=== PATIENT | male | born 1965 | race Hispanic/Latino ===

== ENCOUNTER 2021-02-24 01:04 | Emergency (ER) | payer OTHER, SELFPAY ==
--- OUTSIDE RECORDS SUMMARY | 2021-02-24 01:07 | XMS REPORT | Continuity of Care Document ---
:1965 Author Organization [facility] t Address [address] [place] [address] Care Team Providers Name Role Phone Unavailable Unavailable Unavailable Problems This patient has no known problems. Allergies, Adverse Reactions, Alerts This patient has no known allergies or adverse reactions. Medications This patient has no known medications. Procedures This patient has no known procedures. Results This patient has no known results.
[2021-02-24] MEDS ORDERED: MORPHINE 4 MG/ML SYR ONE ×2 (01:50→04:54)
[2021-02-24] MEDS ORDERED: ONDANSETRON 4 MG/2 ML VIAL ONE (01:51)
[2021-02-24 02:11] LABS: Absolute Lymphocytes (CBC) 1.1 K/uL (0.7-4.9); Basophils % 0.5 % (0-1.3); Hematocrit 46.4 % (39.6-49.0); Lymphocytes % 14.3 % (15.3-44.8); RBC Red Blood Cell Count 5.46 M/uL (4.33-5.43)
[2021-02-24 02:14] LABS: Protime INR 1.07
[2021-02-24] MEDS ORDERED: NA CHLORIDE 0.9% 1,000 ML ONE (02:16)
[2021-02-24 02:35] LABS: ALT/SGPT 36 U/L (12-78); AST/SGOT 13 U/L (15-37); Albumin 3.8 g/dL (3.4-5.0); Alkaline Phosphatase 92 U/L (45-117); BUN Blood Urea Nitrogen 15 mg/dL (7-18); Bicarbonate 26 mmol/L (21-32); Bilirubin Direct 0.2 mg/dL (0-0.2); Bilirubin Total 0.8 mg/dL (0.2-1.0); Glucose Level 251 mg/dL (74-106); Lipase 125 U/L (73-393); Magnesium 2.2 mg/dL (1.8-2.4); NT PRO-BNP 48 pg/mL (<125); Potassium 4.2 mmol/L (3.5-5.1); Protein, Total 7.7 g/dL (6.4-8.2); Sodium Level 136 mmol/L (136-145); Troponin (Emerg Dept Use Only) < 0.02 ng/mL (0.0-0.045)
[2021-02-24 04:46] LABS: Urine Blood Negative (Negative); Urine Glucose 2+ (Negative); Urine Protein Negative (Negative); Urine Specific Gravity 1.025 (1.005-1.030)
--- NOTE | 2021-02-24 04:59 | ER ---
Nurse's Notes [facility] Name: Amilcar Rivera Jr Age: 55 yrs Sex: Male : 1965 Arrival Date: 02/24/2021 Time: 01:10 Bed 19 Private MD: Diagnosis: Lower abdominal pain, unspecified;Flank Pain;Dyspnea, unspecified Presentation: 02/24 01:36 Chief complaint: Patient states: I was lifting a deep freezer with my brother this ld1 evening at 7pm. After I lifted the freezer I noticed a big mass on the left side of my abdomen. Coronavirus screen: At this time, the client does not indicate any symptoms associated with coronavirus-19. Ebola Screen: No symptoms or risks identified at this time. Initial Sepsis Screen: Does the patient meet any 2 criteria? No. Patient's initial sepsis screen is negative. Does the patient have a suspected source of infection? No. Patient's initial sepsis screen is negative. Risk Assessment: Do you want to hurt yourself or someone else? Patient reports no desire to harm self or others. Onset of symptoms was February 24, 2021. 01:36 Method Of Arrival: Ambulatory ld1 01:36 Acuity: RAFITA 3 ld1 Triage Assessment: 01:38 General: Appears in no apparent distress. uncomfortable, Behavior is calm, cooperative, ld1 appropriate for age. Pain: Complains of pain in left lower quadrant Pain does not radiate. Pain currently is 9 out of 10 on a pain scale. Quality of pain is described as sharp, shooting, throbbing, Pain began suddenly, Is continuous. EENT: No signs and/or symptoms were reported regarding the EENT system. Neuro: Level of Consciousness is awake, alert, obeys commands, Oriented to person, place, time, situation, Appropriate for age. Cardiovascular: Capillary refill < 3 seconds Patient's skin is warm and dry. Respiratory: Reports pain with movement pain with respiration Airway is patent Respiratory effort is even, unlabored, Respiratory pattern is regular, symmetrical, Onset: The symptoms/episode began/occurred suddenly, the patient has mild shortness of breath. GI: Abdomen is round non-distended, Reports lower abdominal pain. : No signs and/or symptoms were reported regarding the genitourinary system. Derm: No signs and/or symptoms reported regarding the dermatologic system. Musculoskeletal: No signs and/or symptoms reported regarding the musculoskeletal system. Historical: - Allergies: 01:38 No Known Allergies; ld1 - Home Meds: 01:38 Unable to obtain [Active]; ld1 - PMHx: 01:38 Diabetes mellitus; ld1 - PSHx: 01:38 None; ld1 - Immunization history:: Adult Immunizations up to date, Client reports receiving the 2nd dose of the Covid vaccine. - Social history:: Smoking status: Patient reports the use of cigarette tobacco products, smokes one-half pack cigarettes per day, Patient uses alcohol, occasionally. Screenin:26 Abuse screen: Denies threats or abuse. Denies injuries from another. Nutritional ld1 screening: No deficits noted. Tuberculosis screening: No symptoms or risk factors identified. Fall Risk None identified. Assessment: 02:26 Reassessment: See triage assessment. Cardiovascular: Capillary refill < 3 seconds ld1 Patient's skin is warm and dry. Rhythm is regular. Respiratory: Airway is patent Respiratory effort is even, unlabored, Respiratory pattern is regular, symmetrical, Breath sounds are clear bilaterally. 04:51 Reassessment: Patient is alert, oriented x 3, equal unlabored respirations, skin lp1 warm/dry/pink. Patient reports pain returning to left lateral abdomen, rated 7/10. 05:29 General: Appears in no apparent distress. Behavior is appropriate for age. Pain: lp1 Complains of pain in anterior aspect of left lateral abdomen and posterior aspect of left lateral abdomen. Neuro: Level of Consciousness is awake, alert, obeys commands, Gait is steady. Respiratory: Respiratory effort is even, unlabored. Derm: Skin is pink, warm \T\ dry. Musculoskeletal: No deficits noted. Vital Signs: 01:36 BP 125 / 92; Pulse 79; Resp 16; Temp 98.6(TE); Pulse Ox 92% on 4 lpm NC; Weight 104.33 ld1 kg; Height 5 ft. 7 in. (170.18 cm); Pain 9/10; 02:26 BP 153 / 92; Pulse 84; Resp 15; Pulse Ox 97% on 4 lpm NC; ld1 04:34 BP 121 / 82; Pulse 77; Resp 19; Pulse Ox 95% on 2 lpm NC; Pain 6/10; lp1 01:36 Body Mass Index 36.02 (104.33 kg, 170.18 cm) ld1 ED Course: 01:10 Patient arrived in ED. kc5 01:25 Angelo Limon MD is Attending Physician. mh7 01:38 Triage completed. ld1 01:38 Arm band placed on right wrist. ld1 02:06 XRAY Chest (1 view) In Process Unspecified. EDMS 02:26 Patient has correct armband on for positive identification. Placed in gown. Bed in low ld1 position. Call light in reach. Side rails up X2. Pulse ox on. NIBP on. bus driver/monitor on. Door closed. Noise minimized. Warm blanket given. 02:26 No provider procedures requiring assistance completed. Inserted saline lock: 20 gauge ld1 in right antecubital area, using aseptic technique. Blood collected. 03:07 CT Chest For PE Angio In Process Unspecified. EDMS 03:07 CT Abd/Pelvis - IV Contrast Only In Process Unspecified. EDMS 04:34 Claudia Baxter, RN is Primary Nurse. lp1 05:29 IV discontinued, No redness/swelling at site. Pressure dressing applied. lp1 Administered Medications: 02:06 Drug: morphine 4 mg Route: IVP; Site: right antecubital; ld1 03:30 Follow up: Response: Pain is decreased lp1 02:06 Drug: Zofran (Ondansetron) 4 mg Route: IVP; Site: right antecubital; ld1 03:30 Follow up: Response: No adverse reaction lp1 02:25 Drug: NS 0.9% 1000 ml Route: IV; Rate: 1000 ml; Site: right antecubital; ld1 04:51 Follow up: IV Status: Completed infusion; IV Intake: 1000ml lp1 05:29 Not Given (Patient Refused): morphine 4 mg IVP once; RASS on ADMIN: Combtv4, Very lp1 Agttd3, Agttd2, Rstlss1, AlertClm0, Drwsy-1, Lt Sdtn-2, Mod Sdtn-3, Dp Sdtn-4, UnArsble-5 Intake: 04:51 IV: 1000ml; Total: 1000ml. lp1 Outcome: 04:59 Discharge ordered by . 7 05:29 Discharged to home ambulatory, with family. lp1 05:29 Condition: good 05:29 Discharge instructions given to patient, Instructed on discharge instructions, follow up and referral plans. medication usage, Demonstrated understanding of instructions, follow-up care, medications, Prescriptions given X 1. 05:30 Patient left the ED. lp1 Signatures: Dispatcher [employer] EDMS Claudia Baxter RN RN lp1 Angelo Limon MD MD mh7 Nancy Gonsales RN RN ld1 Alma Clayton 5
--- NOTE | 2021-02-24 04:59 | EDPHYS ---
Physician Documentation [facility] Name: Amilcar Rivera Jr Age: 55 yrs Sex: Male : 1965 Arrival Date: 02/24/2021 Time: 01:10 Bed 19 Private MD: ED Physician Angelo Limon HPI: 02/24 01:37 This 55 yrs old Male presents to ER via Unassigned with complaints of mh7 Breathing Difficulty, PETRUDING MASS ON SIDE. 01:37 The patient presents with abdominal pain in the left upper quadrant, in the left lower mh7 quadrant, Left flank. Onset: The symptoms/episode began/occurred last night, at 19:30. The symptoms do not radiate. Associated signs and symptoms: Pertinent positives: nausea, shortness of breath, Pertinent negatives: anorexia, blood in stools, chest pain, constipation, diarrhea, dysuria, fever, headache, hematuria, palpitations, testicular pain, vomiting, vomiting blood. The symptoms are described as intermittent, vague, waxing/waning. Modifying factors: The symptoms are alleviated by nothing, the symptoms are aggravated by movement, touching the area. Severity of pain: At its worst the pain was moderate last night, in the emergency department the pain is unchanged. Patient states that he started having left sided abdominal pain and left back pain while helping to lift a refrigerator last night. He reports noticing a bulge to the left side of his abdomen. He also complains of some intermittent shortness of breath. He denies any falls or other trauma, chest pain, fever, cough, vomiting, diarrhea, dysuria, dizziness, numbness/tingling, or weakness.. Historical: - Allergies: 01:38 No Known Allergies; ld1 - Home Meds: 01:38 Unable to obtain [Active]; ld1 - PMHx: 01:38 Diabetes mellitus; ld1 - PSHx: 01:38 None; ld1 - Immunization history:: Adult Immunizations up to date, Client reports receiving the 2nd dose of the Covid vaccine. - Social history:: Smoking status: Patient reports the use of cigarette tobacco products, smokes one-half pack cigarettes per day, Patient uses alcohol, occasionally. ROS: 01:37 Constitutional: Negative for fever, chills, and weight loss, Eyes: Negative for injury, mh7 pain, redness, and discharge, ENT: Negative for injury, pain, and discharge, Neck: Negative for injury, pain, and swelling, Cardiovascular: Negative for chest pain, palpitations, and edema, : Negative for injury, bleeding, discharge, and swelling, MS/Extremity: Negative for injury and deformity, Skin: Negative for injury, rash, and discoloration, Neuro: Negative for headache, weakness, numbness, tingling, and seizure, Psych: Negative for depression, anxiety, suicide ideation, homicidal ideation, and hallucinations, Allergy/Immunology: Negative for hives, rash, and allergies, Endocrine: Negative for neck swelling, polydipsia, polyuria, polyphagia, and marked weight changes. Exam: 01:37 Head/Face: Normocephalic, atraumatic. Eyes: Pupils equal round and reactive to light, mh7 extra-ocular motions intact. Lids and lashes normal. Conjunctiva and sclera are non-icteric and not injected. Cornea within normal limits. Periorbital areas with no swelling, redness, or edema. Neck: Trachea midline, no thyromegaly or masses palpated, and no cervical lymphadenopathy. Supple, full range of motion without nuchal rigidity, or vertebral point tenderness. No Meningismus. Chest/axilla: Normal chest wall appearance and motion. Nontender with no deformity. No lesions are appreciated. Cardiovascular: Regular rate and rhythm with a normal S1 and S2. No gallops, murmurs, or rubs. Normal PMI, no JVD. No pulse deficits. 01:37 Skin: Warm, dry with normal turgor. Normal color with no rashes, no lesions, and no evidence of cellulitis. MS/ Extremity: Pulses equal, no cyanosis. Neurovascular intact. Full, normal range of motion. Neuro: Awake and alert, GCS 15, oriented to person, place, time, and situation. Cranial nerves II-XII grossly intact. Motor strength 5/5 in all extremities. Sensory grossly intact. Cerebellar exam normal. Normal gait. Psych: Awake, alert, with orientation to person, place and time. Behavior, mood, and affect are within normal limits. 01:37 Constitutional: The patient appears in no acute distress, alert, awake, uncomfortable. 01:37 Respiratory: Lungs have equal breath sounds bilaterally, clear to auscultation and mh7 percussion. No rales, rhonchi or wheezes noted. No increased work of breathing, no retractions or nasal flaring. 01:37 Abdomen/GI: Inspection: obese Bowel sounds: normal, in all quadrants, Palpation: mh7 moderate abdominal tenderness, in the anterior aspect of left lateral abdomen, posterior aspect of left lateral abdomen and left lower quadrant, mass, is not appreciated, rebound tenderness, is not appreciated, voluntary guarding, is not appreciated, involuntary guarding, is not appreciated, no appreciated organomegaly, Rectal exam: the exam is deferred, because of patient request, Indicators: McBurney's point is not tender, Mays's sign is negative, Rovsing's sign is negative, Obturator sign is negative, Psoas sign is negative, Liver: no appreciated palpable abnormalities, Hernia: not appreciated. 01:37 Back: normal spinal alignment noted, CVA tenderness, that is moderate, is noted on the left, vertebral tenderness, is not appreciated, muscle spasm, is not present. Vital Signs: 01:36 BP 125 / 92; Pulse 79; Resp 16; Temp 98.6(TE); Pulse Ox 92% on 4 lpm NC; Weight 104.33 ld1 kg; Height 5 ft. 7 in. (170.18 cm); Pain 9/10; 02:26 BP 153 / 92; Pulse 84; Resp 15; Pulse Ox 97% on 4 lpm NC; ld1 04:34 BP 121 / 82; Pulse 77; Resp 19; Pulse Ox 95% on 2 lpm NC; Pain 6/10; lp1 01:36 Body Mass Index 36.02 (104.33 kg, 170.18 cm) ld1 MDM: 04:56 Differential diagnosis: AAA, acute coronary syndrome, bowel obstruction, non-specific mh7 abd pain, Ureterolithiasis, urinary tract infection. Data reviewed: vital signs, nurses notes, lab test result(s), cardiac enzymes, CBC, electrolytes, urinalysis, EKG, radiologic studies, CT scan, plain films. Data interpreted: Pulse oximetry: is not applicable for this patient encounter. on room air is 96 %. Interpretation: normal. Counseling: I had a detailed discussion with the patient and/or guardian regarding: the historical points, exam findings, and any diagnostic results supporting the discharge/admit diagnosis, lab results, radiology results, the need for outpatient follow up, to return to the emergency department if symptoms worsen or persist or if there are any questions or concerns that arise at home. 04:59 Patient medically screened. [facility] 02/24 01:34 Order name: Basic Metabolic Panel [facility] 02/24 01:34 Order name: CBC with Diff [facility] 02/24 01:34 Order name: LFT's; Complete Time: 03:41 [facility] 02/24 01:34 Order name: Magnesium; Complete Time: 03:41 [facility] 02/24 01:34 Order name: NT PRO-BNP; Complete Time: 03:41 [facility] 02/24 01:34 Order name: PT-INR; Complete Time: 02:31 [facility] 02/24 01:34 Order name: Troponin (emerg Dept Use Only); Complete Time: 03:41 [facility] 02/24 01:34 Order name: XRAY Chest (1 view) [facility] 02/24 01:34 Order name: Lipase; Complete Time: 03:41 [facility] 02/24 01:34 Order name: Basic Metabolic Panel; Complete Time: 03:41 [facility] 02/24 01:34 Order name: CBC with Automated Diff; Complete Time: 02:31 [facility] 02/24 02:03 Order name: CT Chest For PE Angio [facility] 02/24 02:03 Order name: CT Abd/Pelvis - IV Contrast Only [facility] 02/24 04:46 Order name: Urine Dipstick-Ancillary; Complete Time: 04:49 [facility] 02/24 01:34 Order name: EKG; Complete Time: 01:35 [facility] 02/24 01:34 Order name: Cardiac monitoring; Complete Time: 01:43 [facility] 02/24 01:34 Order name: EKG - Nurse/Tech; Complete Time: 02:06 [facility] 02/24 01:34 Order name: IV Saline Lock; Complete Time: 02:06 [facility] 02/24 01:34 Order name: Labs collected and sent; Complete Time: 02:06 [facility] 02/24 01:34 Order name: O2 Per Protocol; Complete Time: 01:43 [facility] 02/24 01:34 Order name: O2 Sat Monitoring; Complete Time: 01:43 [facility] 02/24 01:34 Order name: Urine Dipstick-Ancillary (obtain specimen); Complete Time: 04:50 [facility] Administered Medications: 02:06 Drug: morphine 4 mg Route: IVP; Site: right antecubital; ld1 03:30 Follow up: Response: Pain is decreased lp1 02:06 Drug: Zofran (Ondansetron) 4 mg Route: IVP; Site: right antecubital; ld1 03:30 Follow up: Response: No adverse reaction lp1 02:25 Drug: NS 0.9% 1000 ml Route: IV; Rate: 1000 ml; Site: right antecubital; ld1 04:51 Follow up: IV Status: Completed infusion; IV Intake: 1000ml lp1 05:29 Not Given (Patient Refused): morphine 4 mg IVP once; RASS on ADMIN: Combtv4, Very lp1 Agttd3, Agttd2, Rstlss1, AlertClm0, Drwsy-1, Lt Sdtn-2, Mod Sdtn-3, Dp Sdtn-4, UnArsble-5 Disposition Summary: 02/24/21 04:59 Discharge Ordered Location: Home [facility] Problem: new [facility] Symptoms: have improved [facility] Condition: Stable [facility] Diagnosis - Lower abdominal pain, unspecified 7 - Flank Pain [facility] - Dyspnea, unspecified 7 Followup: [facility] - With: Private Physician - When: 1 - 2 days - Reason: Worsening of condition, Recheck today's complaints, Continuance of care, Re-evaluation by your physician Discharge Instructions: - Discharge Summary Sheet [facility] - Flank Pain, Adult mh7 - Shortness of Breath, Adult, [id number] [facility] - Abdominal Pain, Adult, [id number] [facility] - Musculoskeletal Pain [facility] Forms: - Medication Reconciliation Form [facility] - Thank You Letter [facility] - Antibiotic Education [facility] - Prescription Opioid Use [facility] Prescriptions: - Tramadol 50 mg Oral Tablet - take 1 tablet by ORAL route every 8 hours as needed; 12 tablet; Refills: 0, 7 Product Selection Permitted Signatures: Dispatcher [employer] Angelo Montague MD MD 7 Nancy Gonsales RN RN ld1 Claudia Baxter RN lp1
[2021-02-24 05:36] VITALS: TEMP 98.6
[2021-02-24 05:40] VITALS: BP 121/82; O2SAT 95
--- NOTE | 2021-02-24 10:43 | RAD REPORT ---
EXAM DESCRIPTION: RAD - Chest Single View - 02/24/2021 2:06 am CLINICAL HISTORY: DYSPNEA Chest pain. COMPARISON: CHEST PA AND LAT 2 VIEW dated 12/27/2014 FINDINGS: Portable technique limits examination quality. Interstitial opacities mildly prominent, greater on the right, suggesting interstitial edema or infec tion. The heart is normal in size. No displaced fractures.
--- NOTE | 2021-02-25 13:12 | RAD REPORT ---
EXAM DESCRIPTION: CT Angiography Chest With Intravenous Contrast CLINICAL HISTORY: The patient is 55 years old and is Male; Abd pain;Flank pain TECHNIQUE: Axial computed tomographic angiography images of the chest with intravenous contrast. S agittal and coronal reformatted images were created and reviewed. This CT exam was performed using one or more of the following dose reduction techniques: automated exposure control, adjustment of t he mA and/or kV according to patient size, and/or use of iterative reconstruction technique. MIP re constructed images were created and reviewed. COMPARISON: No relevant prior studies available. FINDINGS: Pulmonary arteries: Suboptimal contrast bolus for detection of pulmonary embolism. Aorta: No acute findings. No thoracic aortic aneurysm. Lungs: Unremarkable. No mass. No consolidation. Pleural space: Unremarkable. No significant effusion. No pneumothorax. Heart: Unremarkable. No cardiomegaly. No significant pericardial effusion. No evidence of R V dysfunction. Bones/joints: No acute fracture. No dislocation. Soft tissues: Unremarkable. Lymph nodes: Unremarkable. No enlarged lymph nodes. * A single impression for all exams can be found at the end of this report EXAM DESCRIPTION: CT Abdomen and Pelvis With Intravenous Contrast CLINICAL HISTORY: The patient is 55 years old and is Male; Abd pain;Flank pain TECHNIQUE: Axial computed tomography images of the abdomen and pelvis with intravenous contrast. S agittal and coronal reformatted images were created and reviewed. This CT exam was performed using one or more of the following dose reduction techniques: automated exposure control, adjustment of t he mA and/or kV according to patient size, and/or use of iterative reconstruction technique. COMPARISON: No relevant prior studies available. FINDINGS: Lung bases: Unremarkable. No mass. No consolidation. ABDOMEN: Liver: Unremarkable. No mass. Gallbladder and bile ducts: Unremarkable. No calcified stones. No ductal dilation. Pancreas: Unremarkable. No mass. No ductal dilation. Spleen: Unremarkable. No splenomegaly. Adrenals: Unremarkable. No mass. Kidneys and ureters: Unremarkable. No solid mass. No hydronephrosis. Stomach and bowel: Unremarkable. No obstruction. No mucosal thickening. PELVIS: Appendix: No findings to suggest acute appendicitis. Bladder: Unremarkable. No mass. Reproductive: Unremarkable as visualized. ABDOMEN and PELVIS: Intraperitoneal space: Unremarkable. No free air. No significant fluid collection. Bones/joints: Disc space narrowing with degenerative endplate changes at T12-L1. No acute fracture. No dislocation. Soft tissues: Fat-containing bilateral inguinal hernias. Left gluteal atrophy. Vasculature: Scattered atherosclerotic vascular calcifications. No abdominal aortic aneurysm. Lymph nodes: Unremarkable. No enlarged lymph nodes. * A single impression for all exams can be found at the end of this report IMPRESSION: CT Angiography Chest With Intravenous Contrast: No acute finding. No evidence of pulmonary embolism. CT Abdomen and Pelvis With Intravenous Contrast: No acute findings in the abdomen or pelvis. Electronically signed by: Last Agudelo MD 02/24/2021 3:53 AM RESTAURANT SHIFT SUPERVISOR Due to temporary technical issues with the PACS/Fluency reporting system, reports are being signed by the in house radiologists without review as a courtesy to insure prompt reporting. The interpreting radiologist is fully responsible for the content of the report.
--- NOTE | 2021-02-26 08:14 | EKG ---
Test Date: 2021-02-24 Test Time: 01:49:53 Radio Despatcher: CONCHIS MEASUREMENT RESULTS: Intervals: Rate: 70 MO: 200 QRSD: 158 QT: 422 QTc: 455 [place]: P: 41 MO: 200 QRS: -79 T: 20 INTERPRETIVE STATEMENTS: Normal sinus rhythm Left axis deviation Right bundle branch block Possible Lateral infarct, age undetermined Inferior infarct, age undetermined Abnormal ECG No previous ECG available for comparison Electronically Signed On 02-26-21 08:12:08 GREETING CARD EDITOR by Leandro Cash
== END 2021-02-24 05:30 | disposition home or self-care (01) ==
LOC: ER 01:04
DX: R10.30 Lower abdominal pain, unspecified (principal); R06.00 Dyspnea, unspecified; E11.9 Type 2 diabetes mellitus without complications; F17.210 Nicotine dependence, cigarettes, uncomplicated
CPT/HCPCS: 36415; 71045; 71275; 74177; 80048; 80076; 81003; 83690; 83735; 83880; 84484; 85025; 85610; 93005; 96361; 96374; 96375; 99284; J2405; J7030; Q9967